=== PATIENT | male | born 1995 | race Two or more races ===

== ENCOUNTER → 2021-01-05 | Emergency (ER) | payer OTHER ==
[~2021-01-05] VITALS: Ht 170.2 cm; Wt 72.6 kg
[2021-01-05 21:37] VITALS: BP 121/77
== END | disposition left against medical advice (07) ==
LOC: ER 21:29
DX: L02.416 Cutaneous abscess of left lower limb (principal); Z53.21 Procedure and treatment not carried out due to patient leaving prior to being seen by health care provider